=== PATIENT | male | born 1980 | race Caucasian/White ===

== ENCOUNTER 2025-01-24 11:32 | Day surgery (SDC) | payer BC, SELFPAY ==
--- NOTE | 2025-01-19 07:07 | EXP.HP ---
History of Present Illness *Admission Date: 01/24/25 *History of present illness: Mr. Gonzalez is a 44-year-old gentleman who is here for diagnostic EGD and colonoscopy secondary to recurrent iron deficiency. He has had long-term chronic gastrointestinal blood loss and iron deficiency anemia. The patient has had ileal Crohn's disease. He also has had duodenal ulcer disease previously. He has had multiple sources of iron deficiency and GI blood loss but more recently, his colonoscopic and endoscopic examinations have not shown any active Crohn's or ulcers. The patient was on an anastrozole an aromatase inhibitor (estrogen leigh ann). This can promote angiogenesis with AVMs with unopposed testosterone without estrogen and estrogen is a treatment for bleeding AVMs. I did recommend that he stop the anastrozole and he has been off this for a couple of years. He does state that from July 2023 (just after our last visit) until more recently (more than 12 months) his iron levels have for the first time been entirely normal. He did feel that this might be related to stress and he changed his job and felt this may be why he was having issues. The patient had been on Venofer infusions/parenteral iron infusions every 8 weeks but has not had 1 in 17 or 18 months because of normal iron levels. He has not been on any aspirin, NSAIDs or anticoagulation. Recently he had some tachycardia during his workouts. He went to have his routine labs and lab work showed hemoglobin 7.7, hematocrit 28.0, MCV 76.7. Iron studies were not obtained but findings most consistent with iron deficiency. The examination is deemed medically necessary for diagnostic EGD and colonoscopy. The patient has been seen, interviewed and examined prior to the procedure by both myself and the anesthesia provider. [facility] Disclaimer: The information contained in this section may have been updated after the patient was seen, as this information can be updated by other users. Medical History Chronic anemia Crohn's disease Surgical History History of vasectomy History of hernia surgery History of surgery on lower extremity History of bowel resection Family History Other Family history of cancer Social History Smoking Status: Never smoker alcohol intake: current alcohol intake frequency: a few times a week substance use type: denies use current occupational status: employed Travel in the last 8 weeks?: None caffeine: Yes Have you lived/traveled outside US in past 30 days?: No Contact w/someone who lives/traveled outside US past 30 days?: No Exposure to someone with infectious disease in past 14 days?: No Do you have a fever (greater than 100.4 F or 38 C)?: No Have you tested positive for COVID-19?: No Exposed to someone with COVID-19 in past 14 days?: No Do you have a sore throat?: No Do you have a cough?: No Do you have any weakness?: No Are you experiencing any nausea/vomitting?: No Do you have any diarrhea?: No Are you experiencing any unusual bleeding?: No Do you have any muscle aches/pain?: No Do you have any abdominal pain?: No Are you experiencing loss of taste or smell?: No Review of Systems Review of Systems Review of systems (narrative): Negative *Cardiovascular Comments: Negative *Gastrointestinal Comments: Negative *Genitourinary Comments: Negative *Musculoskeletal Comments: Negative *Neurologic Comments: Negative Meds Home Medications and Allergies Home Medications ?Medication ?Instructions ?Recorded ?Confirmed ?Type testosterone enanthate 50 mg/0.5 50 mg SQ .2xweek 01/12/25 01/24/25 History mL subcutaneous auto-injector sodium,potassium,mag sulfates 17.5 See Rx Instructions PO .COMPLEX 01/17/25 01/24/25 Rx gram-3.13 gram-1.6 gram oral soln #354 mL (Suprep Bowel Prep Kit) New Prescriptions to Start Prescriptions: Allergies Allergy/AdvReac Type Severity Reaction Status Date / Time No Known Allergies Allergy Verified 01/24/25 11:52 Exam *Routine HEENT Exam Head: Present normocephalic Eye: Present EOMI and PERRL ENT: Present mucous membranes moist *Routine Neck Exam Neck: Present supple *Routine Respiratory Exam Respiratory: Present CTA bilaterally *Routine Cardiovascular Exam Cardiovascular: Present RRR *Routine Abdominal Exam Abdominal: Present soft and normoactive bowel sounds; Absent tenderness *Routine Rectal Exam Rectal:: deferred *Routine Genitalia Exam Genitalia:: deferred *Routine Extremities Exam Extremities: Absent cyanosis, clubbing or edema *Routine Skin Exam Skin: Present warm; Absent rash *Routine Neurological Exam Neurological: Present alert and oriented X3 Assessment and Plan *Assessment and plan (1) Iron deficiency anemia: Status: Acute Category: Medical Code(s): D50.9 - Iron deficiency anemia, unspecified (2) Acute on chronic blood loss anemia: Status: Acute Category: Medical Code(s): D62 - Acute posthemorrhagic anemia (3) Melena: Status: Acute Category: Medical Code(s): K92.1 - Melena (4) History of Crohn's disease: Status: Acute Category: Medical Code(s): Z87.19 - Personal history of other diseases of the digestive system (5) History of peptic ulcer disease: Status: Acute Category: Medical Code(s): Z87.11 - Personal history of peptic ulcer disease (6) Chronic anemia: Status: Acute Category: Medical Code(s): D64.9 - Anemia, unspecified (7) History of bowel resection: Status: Acute Category: Surgical Code(s): Z90.49 - Acquired absence of other specified parts of digestive tract Plan A/P: 1. Acute on chronic GI blood loss with iron deficiency anemia, melena, prior history of Crohn's disease and peptic ulcer disease is the preprocedural diagnosis. The patient will be anesthetized/sedated using MAC sedation. The patient has been seen and examined. Cardiac and lung assessment prior to the examination is stable. Proceed with planned diagnostic EGD and colonoscopy.
[2025-01-21 15:47] VITALS: BMI 28.8
--- NOTE | 2025-01-24 06:47 | HMH.PROCNOTE ---
[facility] Procedure Note Date: 01/24/25 Time: 12:48 Procedure Note:: Upper Endoscopy Procedure Report: Esophagogastroduodenoscopy with cold biopsies Endoscopost: Juan Manuel Baez II, MD Referring Physician: Domenic Moya MD, [address], [address], [place] [address] Date of Procedure: January 24, 2025 Equipment: Olympus [id number]-1100 standard upper endoscope Sedation: MAC sedation Indications: Mr. Gonzalez is a 44-year-old gentleman who is here for diagnostic EGD and colonoscopy secondary to recurrent iron deficiency. He has had long-term chronic gastrointestinal blood loss and iron deficiency anemia. The patient has had ileal Crohn's disease. He also has had duodenal ulcer disease previously. He has had multiple sources of iron deficiency and GI blood loss but more recently, his colonoscopic and endoscopic examinations have not shown any active Crohn's or ulcers. The patient was on an anastrozole an aromatase inhibitor (estrogen leigh ann). This can promote angiogenesis with AVMs with unopposed testosterone without estrogen and estrogen is a treatment for bleeding AVMs. I did recommend that he stop the anastrozole and he has been off this for a couple of years. He does state that from July 2023 (just after our last visit) until more recently (more than 12 months) his iron levels have for the first time been entirely normal. He did feel that this might be related to stress and he changed his job and felt this may be why he was having issues. The patient had been on Venofer infusions/parenteral iron infusions every 8 weeks but has not had 1 in 17 or 18 months because of normal iron levels. He has not been on any aspirin, NSAIDs or anticoagulation. Recently he had some tachycardia during his workouts. He went to have his routine labs and lab work showed hemoglobin 7.7, hematocrit 28.0, MCV 76.7. Iron studies were not obtained but findings most consistent with iron deficiency. The examination is deemed medically necessary for diagnostic EGD and colonoscopy. Procedure: Prior to the procedure, a history and physical exam was performed, and patient's medications and allergies were reviewed. The risks, benefits and alternatives of the sedation and procedure were discussed with the patient. All questions were answered and informed consent was obtained. The patient was brought to the procedure room. Patient identification and proposed procedure were verified by the physician and the nurse. The patient was placed in a left lateral decubitus position and the scope was passed under direct vision. Throughout the procedure, the patient's blood pressure, pulse, and oxygen saturations were monitored continuously. The upper GI endoscopy was accomplished without difficulty. The patient tolerated the procedure well. Findings: The scope was passed directly into the upper esophagus and advanced to the fourth portion of the duodenum. The post bulbar duodenum, ampulla and duodenal bulb were normal with normal mucosa and conniventes. The scope was withdrawn through a normal duodenal bulb and pylorus into the stomach. There was some mild bile reflux with minimal linear gastropathy of the prepyloric antrum. The body and fundus of the stomach were normal. Upon retroflexion there was a very small sliding 1 to 2 cm hiatal hernia. The scope was then withdrawn into the esophagus. There was no evidence of reflux esophagitis or Marcelino's. There was no heme noted throughout the upper endoscopy and no signs of acute or chronic GI blood loss from the upper digestive tract. The remainder of the esophageal mucosa was normal. Impression: 1. Normal upper endoscopy Plan: I will proceed with colonoscopy for further diagnostic evaluation.
--- NOTE | 2025-01-24 06:47 | HMH.PROCNOTE ---
[facility] Procedure Note Date: 01/24/25 Time: 13:20 Procedure Note:: Colonoscopy Procedure Report: Colonoscopy with APC ablation Endoscopist: Juan Manuel Baez II, MD Referring physician: Domenic Moya MD, [address], [address], [place] [address] Date of Procedure: January 24, 2025 Equipment: Olympus [id number] adult colonoscope Sedation: MAC sedation Indication: Mr. Gonzalez is a 44-year-old gentleman who is here for diagnostic EGD and colonoscopy secondary to recurrent iron deficiency. He has had long-term chronic gastrointestinal blood loss and iron deficiency anemia. The patient has had ileal Crohn's disease. He also has had duodenal ulcer disease previously. He has had multiple sources of iron deficiency and GI blood loss but more recently, his colonoscopic and endoscopic examinations have not shown any active Crohn's or ulcers. The patient was on an anastrozole an aromatase inhibitor (estrogen leigh ann). This can promote angiogenesis with AVMs with unopposed testosterone without estrogen and estrogen is a treatment for bleeding AVMs. I did recommend that he stop the anastrozole and he has been off this for a couple of years. He does state that from July 2023 (just after our last visit) until more recently (more than 12 months) his iron levels have for the first time been entirely normal. He did feel that this might be related to stress and he changed his job and felt this may be why he was having issues. The patient had been on Venofer infusions/parenteral iron infusions every 8 weeks but has not had 1 in 17 or 18 months because of normal iron levels. He has not been on any aspirin, NSAIDs or anticoagulation. Recently he had some tachycardia during his workouts. He went to have his routine labs and lab work showed hemoglobin 7.7, hematocrit 28.0, MCV 76.7. Iron studies were not obtained but findings most consistent with iron deficiency. The examination is deemed medically necessary for diagnostic EGD and colonoscopy. Procedure: Prior to the procedure, a history and physical exam was performed, and patient's medications and allergies were reviewed. The risks, benefits and alternatives of the sedation and procedure were discussed with the patient. All questions were answered and informed consent was obtained. The patient was brought to the procedure room. Patient identification and proposed procedure were verified by the physician and the nurse. The patient was placed in a left lateral decubitus position and the scope was passed under direct vision. Throughout the procedure, the patient's blood pressure, pulse, and oxygen saturations were monitored continuously. The colonoscopy was accomplished without difficulty. The patient tolerated the procedure well. Findings: On digital rectal examination there was normal rectal tone. There were no external hemorrhoids. The colonoscope was introduced through the anal canal to the rectum and advanced to the ileocolonic anastomosis. The scope was advanced approximately 30 cm into the ileum. There were 2 very small nonbleeding AVMs/angiodysplasias within the ileum that were ablated using APC (argon plasma coagulation). There was an AVM/angiodysplasia at the anastomosis ([id number]) and this was ablated using APC and there was some minor adjacent heme. There was a single colonic AVM/angiodysplasia in the transverse colon that was also ablated. The remainder of the ascending, transverse, descending, sigmoid and rectum were grossly normal and there were no other mucosal abnormalities identified. Upon retroflexion within the rectum there were no internal hemorrhoids. The preparation was excellent throughout with [place] Preparation Score of 9. The cecal time was 15 minutes. Impression: 1. 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 He has been off of the anastrozole. He did have over a year of nonbleeding and normal iron levels.
[2025-01-24 11:52] VITALS: BP 125/81; PULSE 64; RESP 18; TEMP 36.2; O2SAT 100
--- NOTE | 2025-01-24 12:04 | EXP.ANES.CKL ---
[facility] Disclaimer: The information contained in this section may have been updated after the patient was seen, as this information can be updated by other users. Medical History Chronic anemia Crohn's disease Surgical History History of vasectomy History of hernia surgery History of surgery on lower extremity History of bowel resection Family History Other Family history of cancer Social History Smoking Status: Never smoker alcohol intake: current alcohol intake frequency: a few times a week substance use type: denies use current occupational status: employed Travel in the last 8 weeks?: None caffeine: Yes Have you lived/traveled outside [place] in past 30 days?: No Contact w/someone who lives/traveled outside [place] past 30 days?: No Exposure to someone with infectious disease in past 14 days?: No Do you have a fever (greater than 100.4 F or 38 C)?: No Have you tested positive for COVID-19?: No Exposed to someone with COVID-19 in past 14 days?: No Do you have a sore throat?: No Do you have a cough?: No Do you have any weakness?: No Are you experiencing any nausea/vomitting?: No Do you have any diarrhea?: No Are you experiencing any unusual bleeding?: No Do you have any muscle aches/pain?: No Do you have any abdominal pain?: No Are you experiencing loss of taste or smell?: No [facility] Anesthesia Checklist Patient Identification Patient Identification: Arm Band and Verbal (Name & ) Structural Data Admitted From: Home Planned Operative Procedure/s: colonscopy Consent for Planned Operative Procedure(s) Verified: Yes Verified Documents: Surgical Consent and History and Physical NPO Status Verified Time NPO: 00:00 Additional verifications Previous Colonoscopy: Yes Airway Assessment Mallampati Score:: Class II C-Spine Mobility Assessed: Yes TMJ Mobility Assessed: Yes Dentition: Good Dentition Neurological Assessment Level of Consciousness: Awake, Alert and Appropriate Hx Seizures: No Numbness or tingling in extremities: No Anesthesia Plan Anesthesia Risk discussed: Yes Anesthesia Plan: Verified ASA Class: II Anesthesia Type: MAC
[2025-01-24] MEDS: LACTATED RINGERS 1000ML 1,000 ML 50 ML IV (12:09)
[2025-01-24 13:19] VITALS: BP 104/56; PULSE 68; RESP 16; TEMP 36.1; O2SAT 98
[2025-01-24 13:29] VITALS: BP 99/57; PULSE 58; RESP 17; TEMP 36.1; O2SAT 98
[2025-01-24 13:39] VITALS: BP 105/54; PULSE 68; RESP 17; TEMP 36.1; O2SAT 97
[2025-01-24 13:49] VITALS: BP 121/84; PULSE 63; RESP 18; TEMP 36.1; O2SAT 98
== END 2025-01-24 14:05 | disposition home or self-care (01) ==
PROVIDERS: PCP General Practice; Visit Provider Internal Medicine Gastroenterology
PROC: 0DJ08ZZ Inspection of Upper Intestinal Tract, Via Natural or Artificial Opening Endoscopic (ICD-10-PCS; CPT 45378; principal; 2025-01-24 13:00)
DX: D50.9 Iron deficiency anemia, unspecified (principal); K21.9 Gastro-esophageal reflux disease without esophagitis; K31.89 Other diseases of stomach and duodenum; K44.9 Diaphragmatic hernia without obstruction or gangrene; Z87.19 Personal history of other diseases of the digestive system; Z87.11 Personal history of peptic ulcer disease; K55.20 Angiodysplasia of colon without hemorrhage; Z98.0 Intestinal bypass and anastomosis status; Z90.49 Acquired absence of other specified parts of digestive tract; Z79.890 Hormone replacement therapy
CPT/HCPCS: 43239; 45388; C2618; J2003; J2704; J7120